=== PATIENT | female | born 1955 | race Caucasian/White ===

== ENCOUNTER 2024-07-15 01:42 | Day surgery (SDC) | payer OTHER, SELFPAY ==
[2024-06-27 13:55] VITALS: BMI 26.5
--- NOTE | 2024-06-27 14:08 | PC.NURSE ---
Report to the Outpatient Waiting Room, entrance under the green pavilion located off [facility], at time __1100am on date __07/15/24 . Planned Procedure Time: _ 100pm .? Time changes happen often and if your time is changed the preop area will call you the afternoon before. - You and your visitor will be asked to self-screen and do not enter if you have any COVID symptoms. Please call surgeon if you need to reschedule. - A mask is optional within the hospital at this time. Patients may have clear liquids (water, carbonated beverages, clear teas, apple juice) until 3 hours prior to surgery with a maximum of 20 ounces. - No food from midnight until time of surgery and no smoking. This includes no chewing gum, candy or mints.(1000am) Take only the following medications with a SIP of water on the morning of surgery: ___Alprazolam as needed DO NOT STOP ANY OF YOUR OTHER PRESCRIPTION MEDICATIONS PRIOR TO SURGERY EXCEPT THE FOLLOWING Medications to discontinue per physician None Date to take last dose___None Please no make-up, nail russian, hairspray, perfume, deodorant, or body powder the day of surgery.? No jewelry (including any body piercings) or valuables the day of surgery, leave them at home.? Please take a shower or bath the night before, or the morning of, surgery with an antibacterial soap.? Wear comfortable, loose fitting clothing.? - Jewelry must be removed prior to entering the operating room.? Rings and piercings that are not removed may be cut off. - The hospital will not accept responsibility for valuables.? - Please leave all valuables, including medications, at home the day of surgery. If you are going home after surgery, a licensed six horse hitch driver must drive you home.? - NO public transportation without another adult if you receive anesthesia. - We recommend that an adult stay with you for 24 hours following discharge. - We also recommend that you do not drive, make important decision, drink alcoholic beverages, or take any drugs that were not prescribed by your health care provider for at least 24 hours after your discharge time. Follow any additional instructions given to you from your surgeon. Telephone instructions given to __Patient and asked if any additional questions and then verbalized understanding. Patient advised to call surgeon office or pre surgery nurse liaison [phone] if any additional questions.
[2024-07-15] VITALS (9 sets, daily range): BP systolic 101–130; BP diastolic 62–70; PULSE 68–88; RESP 12–18; TEMP 36.1–36.8; O2SAT 96–100
[2024-07-15] MEDS: LACTATED RINGERS 1,000 ML 30 ML IV CONT (12:00)
--- NOTE | 2024-07-15 12:26 | WPDHPUPDATE1 ---
History and Physical Update Update Date/Time: 07/15/24 12:26 History and Physical has been reviewed, including an updated exam of the patient. There are NO changes in the patient's condition. Risks, benefits, and alternatives have been discussed and questions answered. Patient agrees to proceed with procedure.
--- NOTE | 2024-07-15 12:41 | W.PM.PROC2 ---
Procedure Note - Detailed Date of Procedure 07/15/24 Pre-op Diagnosis History of Breast Aug Post-op Diagnosis Same Procedure Performed Bilateral breast implant exchange Surgeon Og Jeronimo MD Anesthesia General Findings Previous implants: Texture saline No worrisome features No markings on implant Replacement implants: [place] Smooth Round filled to 425cc Right REF# [id number] Left REF# [phone] [id number] Description of Procedure Preoperatively the risks, benefits, alternatives were discussed in extensive detail. I wanted to be very realistic about the risks involved as well as expectations. I was clear about how we could actually make her worse. Answered all questions to satisfaction. Voiced a clear understanding. Consent obtained. She was taken the operating room placed supine on the operating room table. Anesthesia provided by anesthesiology and prepped and draped in a standard sterile fashion. Surgical time-out was taken. 1% lidocaine and 0.25% Marcaine with epinephrine was used to provide a field block. Tegaderm nipple kang were placed. Fifteen blade used to excise the previous IMF scars. Dissection was continued down until the capsules were identified and excised a significant portion of the capsule which was sent to pathology. I then copiously irrigated with 3 L of saline solution on TUR tubing. Verified strict hemostasis. I then irrigated with Betadine containing solution. Using a no-touch technique and a Butcher funnel the implant was introduced into the pocket. This was closed with 2-0 PDS followed by 3-0 Monocryl and a running subcuticular 4-0 Monocryl followed by tissue glue. Dressings were placed. She was woken taken to the PACU without difficulty. All instrument sponge counts were correct at the end of the case. Estimated Blood Loss 25 Drains No Packing No Pathology None sent Complications No immediate complications Condition Stable Disposition PACU
--- NOTE | 2024-07-15 12:59 | WPDANESEPPF ---
Anes - Initial Pre Proc Eval Procedure: Operation Date: 07/15/24 13:00 Proposed Procedures p Bilateral Breast Implant Exchange - Og Jeronimo MD Date/Time: 07/15/24 12:59 Surgeon: Og Jeronimo MD Pre Op Diagnosis: History of Breast Aug Patient Data Age: 68 Gender: F Height: 1.6 m Weight: 68 kg Allergies Allergy/AdvReac Type Severity Reaction Status Date / Time No Known Allergies Allergy Verified 07/15/24 11:29 Home Medications Medication Instructions Recorded Confirmed Type alprazolam 0.25 mg tablet 25 mg PO PRN PRN Anxiety 06/27/24 07/15/24 History lansoprazole 30 mg capsule,delayed 30 mg PO DAILY 06/27/24 07/15/24 History release (Prevacid) triamterene 37.5 1 cap PO PRN PRN fluid 06/27/24 07/15/24 History mg-hydrochlorothiazide 25 mg capsule valacyclovir 500 mg tablet 500 mg PO PRN PRN Cold Sores 06/27/24 06/27/24 History Patient hx anesthesia problems: none Family hx anesthesia problems: none Results Review: All pre-operative results and documents have been reviewed as part of the pre-operative evaluation. [facility] Social History Social History Smoking status: Never smoker Alcohol intake: current Drinks per week: 1 Substance use: never Living arrangements: with family Additional living arrangements comments: Spiritual care concerns: No Anes - Eval Final PreProcedure Day of Procedure 07/15/24 12:59 Patient weight: normal Heart: regular rate and rhythm Lungs: clear to auscultation Airway: Mallampati scale class II Neurological: alert and oriented Last oral intake: >/= 8 hours ASA classification: II Emergent: no Anesthetic plan: proceed Anesthesia type and monitoring: general LMA and standard monitoring Results Review: All pre-operative results and documents have been reviewed as part of the pre-operative evaluation. Informed Consent: The patient's anesthetic plan and its attendant risks and benefits were discussed with the patient/family/POA. Questions were solicited and answers provided to the satisfaction of the patient/family/POA.
[2024-07-15] MEDS: SCOPOLAMINE 1 MG PATCH 1 PATCH TRANSDERM (13:06)
[2024-07-15] MEDS: LIDO 1%/EPINEPHRINE 1:100,000 50 ML VIAL 30 ML INFILTRATE (13:08)
[2024-07-15] MEDS: ceFAZolin 2 GM/D5W 50 ML 2 GM/50 ML BAG IVPB (13:08)
[2024-07-15] MEDS: TRANEXAMIC ACID 1,000MG/ISO100 1,000 MG/100 ML BAG 200 MG IVPB (13:08)
[2024-07-15] MEDS: BUPivacaine HCL 0.25% PF 30 ML VIAL INFILTRATE (13:08)
[2024-07-15] MEDS: NACL 0.9% IRRIG POUR BOTTLE 900 ML, GENTAMICIN SULFATE INJ 160 MG, ceFAZolin 2 GM, POVI... IRRIGATION (13:36)
[2024-07-15] MEDS: HYDROmorphone HCL INJ (*CRX) 1 MG/ML SYR 0.5 MG IV PUSH ×2 (14:58→15:04)
[2024-07-15] MEDS: oxyCODONE HCL (*CRX) 2.5 MG TAB IR PO (16:07)
== END 2024-07-15 16:41 | disposition home or self-care (01) ==
PROVIDERS: PCP Family Medicine; Visit Provider Surgery Plastic and Reconstructive Surgery
PROC: (CPT 19370; principal; 2024-07-15 13:00)
DX: Z41.1 Encounter for cosmetic surgery (principal); N64.81 Ptosis of breast; N64.89 Other specified disorders of breast; Z98.82 Breast implant status
CPT/HCPCS: 19370; 19325; A9270; J0690; J1100; J1171; J1580; J2003; J2004; J2250; J2405; J2704; J3010; J7030; J7120